=== PATIENT | female | born 1965 | race Caucasian/White ===

== ENCOUNTER → 2017-11-20 | Outpatient (CLI) | payer OTHER | LOC: FIMAGING 16:09 | PROVIDERS: ATTEND Physician Assistant | DX: R05 Cough (principal); J40 Bronchitis, not specified as acute or chronic; R06.89 Other abnormalities of breathing ==

== ENCOUNTER 2018-09-17 10:03 | Inpatient (IN) | payer OTHER ==
--- NOTE | 2018-09-17 10:21 | EDPHY ---
H & P Stated Complaint: Abdominal pain, recently diagnosed with diverticulitis, constipation Time Seen by Provider: 09/17/18 10:21 HPI/ROS: CHIEF COMPLAINT: Abdominal pain, recently diagnosed with diverticulitis, constipation HISTORY OF PRESENT ILLNESS: The patient presents to the ED with abdominal pain increasing over the past several days and constipation which has not been resolved with using laxatives. The patient was diagnosed with diverticulitis approximately 6 days ago [facility] by CT scan. She has been on Cipro and Flagyl since that time. The patient denies any fever but does report increasing abdominal pain, decreased appetite and constipation which has been refractory to [id number] medications including Senokot, milk of magnesia and magnesium citrate. She presents to the ED today secondary to her ongoing pain and constipation. She denies any fever, cough or congestion. She denies additional acute complaints. REVIEW OF SYSTEMS: A comprehensive 10 point review of systems is otherwise negative aside from elements mentioned in the history of present illness. Source: Patient - Personal History Current Tetanus Diphtheria and Acellular Pertussis (TDAP): Yes Tetanus Vaccine Date: May 2012 - Medical/Surgical History Hx Asthma: No Hx Chronic Respiratory Disease: No Hx Diabetes: Yes Hx Cardiac Disease: No Hx Renal Disease: No Hx Cirrhosis: No Hx Alcoholism: No Hx HIV/AIDS: No Hx Splenectomy or Spleen Trauma: No Other PMH: L SUNDEEP, Diffuse Idiopathic Skeletal Hyperostosis, DMII, Osteoarthritis , hysterectomy, diverticulosis - Social History Smoking Status: Current every day smoker - Physical Exam Exam: General Appearance: Alert, no distress Eyes: Pupils equal and round no pallor or injection ENT, Mouth: Mucous membranes moist Respiratory: There are no retractions, lungs are clear to auscultation Cardiovascular: Regular rate and rhythm Gastrointestinal: Diffuse generalized tenderness to palpation, no peritoneal signs, hypoactive bowel sounds Neurological: 5/5 strength all 4 extremities Skin: Warm and dry, no rashes Musculoskeletal: Neck is supple nontender Extremities: symmetrical, full range of motion Constitutional: Initial Vital Signs Temperature (C) 37.2 C 09/17/18 10:12 Heart Rate 105 H 09/17/18 10:12 Respiratory Rate 16 09/17/18 10:12 Blood Pressure 138/90 H 09/17/18 10:12 O2 Sat (%) 95 09/17/18 10:12 O2 Delivery Mode Room Air Allergies/Adverse Reactions: Bran [From Oat Bran] Allergy (Severe, Verified 06/21/16 19:48) itchy and difficulty breathing bupropion HCl [From Wellbutrin] Allergy (Severe, Verified 06/21/16 19:48) Swelling/neck,face,throat dietary supplement [From Oat Bran] Allergy (Severe, Verified 06/21/16 19:48) itchy, difficulty breathing ofloxacin [From Floxin] Allergy (Severe, Verified 06/21/16 19:48) Hives ceftaroline fosamil acetate [From Teflaro] Allergy (Verified 06/21/16 19:48) gabapentin Allergy (Verified 06/21/16 19:48) hydrocodone Allergy (Verified 06/21/16 19:48) procaine HCl [From Novocain] Allergy (Verified 06/21/16 19:48) Swelling/neck,face,throat vancomycin Allergy (Verified 06/21/16 19:48) Home Medications: Medication Instructions Recorded Cholecalciferol Vit D3 [Vitamin D3 5,000 units PO DAILY 05/21/16 (*)] Citalopram Hydrobromide 80 mg PO HS 05/21/16 [Citalopram HBr] Cyclobenzaprine [Flexeril 10 MG 10 mg PO TID@,,22 05/21/16 (*)] Omeprazole [Prilosec 20 mg] 20 mg PO DAILY 05/21/16 oxyCODONE CR [Oxycontin] 30 mg PO TID@,14,22 06/21/16 oxyCODONE HCL/ACETAMINOPHEN 1 - 2 each PO Q3-4PRN PRN 06/21/16 [Percocet 10-325 mg Tablet] Sennosides/Docusate Sodium 1 - 2 tab PO BID PRN #30 tab 06/24/16 [Senokot-S] Cipro 09/17/18 Diclofenac Epolamine 09/17/18 Flagyl 09/17/18 Oxycontin 09/17/18 Prevacid 09/17/18 Medical Decision Making - Diagnostics Imaging Results: Imaging Impressions Abdomen X-Ray 09/17/18 10:29 Impression: 1. No localizing features within the abdomen. 2. Stable persistent elevation right hemidiaphragm. 3. Mild constipation. CT abdomen pelvis with IV contrast: Images reviewed by myself and discussed with radiologist. Sigmoid diverticulitis is present without evidence of an obvious perforation or abscess. Some artifact from prior hip replacement. ED Course/Re-evaluation: I reviewed the results of the patient's CT scan in the [facility] database performed on September 12: IMPRESSION: 1. Mild distal colonic diverticulosis with mild short segment thickening of the sigmoid colon. Image quality is degraded within the pelvis from left SUNDEEP artifact. This could represent focal colitis or mild diverticulitis. The patient had an IV established. The patient received normal saline in the emergency department. The patient now has a [place] [address]. She reports increasing pain since starting oral antibiotic therapy for mild diverticulitis. Plain film of the abdomen demonstrates mild constipation without evidence of perforation or abscess. I re-evaluated the patient at 12:00 p.m.. Given her increasing tenderness and leukocytosis am concerned about the possibility of a perforation or abscess. We will repeat a CT scan of the abdomen and pelvis to assess for the possibility of complications of her diverticular disease. 2:00 p.m.: Patient CT scan demonstrates diverticulitis without perforation or abscess. The patient is still quite uncomfortable and is requesting in-patient hospitalization. Consultation is made with the hospitalist service. She will be admitted for further care for diverticulitis. I have ordered IV Levaquin and Flagyl in the emergency department. Differential Diagnosis: Differential diagnosis considered includes diverticulitis, perforation, abscess , appendicitis, mesenteric adenitis, constipation, obstipation, obstruction - Data Points Laboratory Results: Laboratory Results 09/17/18 10:40 09/17/18 10:40 09/17/18 09/17/18 10:40 10:40 WBC 14.47 10^3/uL H 10^3/uL (3.80-9.50) RBC 4.80 10^6/uL 10^6/uL (4.18-5.33) Hgb 14.9 g/dL g/dL (12.6-16.3) Hct 43.9 % % (38.0-47.0) MCV 91.5 fL fL (81.5-99.8) MCH 31.0 pg pg (27.9-34.1) MCHC 33.9 g/dL g/dL (32.4-36.7) RDW 12.5 % % (11.5-15.2) Plt Count 373 10^3/uL 10^3/uL (150-400) MPV 9.4 fL fL (8.7-11.7) Neut % (Auto) 83.0 % H % (39.3-74.2) Lymph % (Auto) 9.7 % L % (15.0-45.0) [place] % (Auto) 6.1 % % (4.5-13.0) Eos % (Auto) 0.6 % % (0.6-7.6) Baso % (Auto) 0.3 % % (0.3-1.7) Nucleat RBC Rel Count 0.0 % % (0.0-0.2) Absolute Neuts (auto) 12.01 10^3/uL H 10^3/uL (1.70-6.50) Absolute Lymphs (auto) 1.40 10^3/uL 10^3/uL (1.00-3.00) Absolute Monos (auto) 0.88 10^3/uL H 10^3/uL (0.30-0.80) Absolute Eos (auto) 0.08 10^3/uL 10^3/uL (0.03-0.40) Absolute Basos (auto) 0.05 10^3/uL 10^3/uL (0.02-0.10) Absolute Nucleated RBC 0.00 10^3/uL 10^3/uL (0-0.01) Immature Gran % 0.3 % % (0.0-1.1) Immature Gran # 0.05 10^3/uL 10^3/uL (0.00-0.10) Sodium 137 mEq/L mEq/L (135-145) Potassium 4.9 mEq/L mEq/L (3.3-5.0) Chloride 101 mEq/L mEq/L (97-110) Carbon Dioxide 25 mEq/l mEq/l (22-31) Anion Gap 11 mEq/L mEq/L (6-14) BUN 11 mg/dL mg/dL (7-23) Creatinine 0.9 mg/dL mg/dL (0.6-1.0) Estimated GFR > 60 Glucose 311 mg/dL H mg/dL (70-100) Calcium 9.5 mg/dL mg/dL (8.5-10.4) Medications Given: Discontinued Medications Sodium Chloride (Ns) 1,000 mls @ 0 mls/hr IV EDNOW ONE; Wide Open PRN Reason: Protocol Stop: 09/17/18 11:08 Last Admin: 09/17/18 11:13 Dose: 1,000 mls Departure - Departure Disposition: [facility] Inpatient Acute Clinical Impression: Diverticulitis Condition: Good Referrals: Marguerite Conley MD [Primary Care Provider] - As per Instructions
[2018-09-17 10:45] LABS: PLATELET COUNT 373 10^3/uL (150-400)
[2018-09-17] MEDS ORDERED: NS 1,000 ML IV ONE (11:07)
[2018-09-17] MEDS ORDERED: IOPAMIDOL (ISOVUE-300) 100 ML BTL ONE (12:07)
[2018-09-17] MEDS ORDERED: ERTAPENEM 1 GM in NS 100 ML IV ONE (14:13)
[2018-09-17] MEDS ORDERED: ONDANSETRON DISINTEGRATING 4 MG TAB PO PRN (14:16)
[2018-09-17] MEDS ORDERED: ONDANSETRON 4 MG/2 ML VIAL IVP PRN (14:16)
[2018-09-17] MEDS ORDERED: ACETAMINOPHEN 325 MG TAB PO PRN (14:21)
[2018-09-17] MEDS ORDERED: NS W/ 20 KCl/L 1,000 ML IV SCH (14:30)
[2018-09-17] MEDS ORDERED: D50W 25 GM/50 ML SYR IVP PRN (14:48)
--- NOTE | 2018-09-17 15:23 | GHP ---
DATE OF ADMISSION: 09/17/2018 CHIEF COMPLAINT: Diverticulitis. HISTORY OF PRESENT ILLNESS: This is a 53-year-old female who presents with diverticulitis. Notably, she was seen in the ED in [place] 5 days ago. Diagnosed by CT scan with diverticulitis at that point. She was started on Cipro, as well as Flagyl. Since then, she has not had a bowel movement, has had some ongoing abdominal pain which has worsened. She has been taking laxatives, as well as stool softeners for her constipation. She believes she had some night sweats last night, but no true fevers. She has some nausea, but no vomiting. She has some sharp pain in her suprapubic area when she urinates, as well but no real dysuria. Her last episode of diverticulitis was about 2 years ago. At that time, prophylactic colectomy was considered; however, she declined. She discussed this with Dr. Shea. She has had diverticulitis 2 or 3 times before that, which had been treated as an outpatient. Her last colonoscopy was in 2013. PAST MEDICAL/SURGICAL HISTORY: 1. Diabetes mellitus. 2. Chronic pain on continuous narcotics. 3. 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 4. Episode of neutropenia. 5. Osteoarthritis. 6. DISH. 7. Morbid obesity. 8. Chronic back pain. MEDICATIONS: Please see medication reconciliation. ALLERGIES: bupropion, ofloxacin, ceftaroline, gabapentin, hydrocodone, procaine , and vancomycin. SOCIAL HISTORY: She does not drink. She does smoke and requests a nicotine patch. FAMILY HISTORY: No colon cancer or other colon pathology. REVIEW OF SYSTEMS: A 10-point review of systems is conducted and is negative, except per HPI. PHYSICAL EXAM: VITAL SIGNS: Blood pressure 135/87, heart rate 87, respiration rate 16, saturating 95% on room air, temperature is 37. GENERAL: The patient is a pleasant female who is resting comfortably in no acute distress. HEENT: Normocephalic, atraumatic. CARDIOVASCULAR: Regular rate and rhythm. No murmurs, rubs, or gallops. PULMONARY: Lungs clear to auscultation bilaterally. ABDOMEN: Shows her to have normal bowel sounds. She has an obese abdomen. She has a midline vertical surgical scar to her umbilicus. She is mildly tender to palpation mostly in the right middle quadrant with no significant left lower quadrant or suprapubic tenderness. She has a non- peritoneal exam. SKIN: No rash. : No Parsons. NEUROLOGIC: Shows her to be alert and oriented x3. She is moving all extremities. PSYCHIATRIC: Exam shows a normal mood and affect. LABORATORY: White count is 14.4. Basic metabolic panel is normal. Glucose is 311. DATA: 1. I discussed with Dr. Gant. Will admit to Med/Surg. 2. I personally viewed and interpreted her abdominal CT scan. This shows some mild sigmoid diverticulitis. No perforation, free air, or abscess. IMPRESSION/PLAN: 1. Diverticulitis, uncomplicated: She has had significant antibiotic exposure from her infected hip. When she was here 2 years ago, Infectious Disease recommended Invanz for initial treatment, will start this now. She has failed outpatient oral Cipro/Flagyl. She has sharp suprapubic pain, but no other evidence of colovesicular fistula on imaging. Will treat her conservatively for now, make her n.p.o., give her intravenous fluids and intravenous antibiotics. She saw Dr. Shea previously for discussion of a prophylactic colectomy. She certainly does not need emergent or urgent surgery at this point. 2. Diabetes mellitus with hyperglycemia: I do not see that she is on any medications for this. Will follow her glucoses and start her on sliding scale insulin for now. This may need to be further addressed. 3. History of left total hip arthroplasty with infection, as well as multiple surgeries: She has been off antibiotics for almost 2 years, and her last surgery was about 2 years ago. 4. Chronic pain on continuous narcotics: Will continue her home oral narcotics and give her intravenous options as well. 5. Suspected ileus: Her constipation should resolve when the inflammation from her diverticulitis resolves. I will not continue laxatives at this point. 6. Morbid obesity. 7. Venous thromboembolism risk: She is moderate to high risk. I will start her on Lovenox. /[id number]/MODL MTDD
[2018-09-17] MEDS: CYCLOBENZAPRINE 10 MG TAB PO SCH ×2 (15:39→21:05)
[2018-09-17] MEDS: NICOTINE 21 MG/24 HR PATCH TD SCH (15:40)
[2018-09-17] MEDS: NS 1,000 ML IV SCH (15:46)
--- NOTE | 2018-09-17 16:40 | PDMN ---
Medical Necessity Medical necessity: Pt meets inpt criteria per MD order and MCG M-150, Diverticulitis, Acute. 53 y/o recently diagnosed w/acute diverticulitis and treated as outpt presents today w/nausea and abdominal pain as well as pain in suprpubic area, and no BM in 5 days, admitted w/acute diverticulitis (w/failed outpt treatment w/oral Cipro/Flagyl), suspected ileus, and hyperglycemia. NPO, IVF, IV ABX's, SS insulin, IV Dilaudid for pain, anticipate>2MN for management of above.
[2018-09-17] MEDS: HYDROmorphONE/DILAUDID 1 MG/ML INJ IVP PRN ×2 (17:32→21:36)
[2018-09-17] MEDS ORDERED: oxyCODONE IR 5 MG TAB PO PRN (17:42)
[2018-09-17] MEDS: OXYCODONE/APAP 5/325 TAB PO PRN (18:51)
[2018-09-17] MEDS: oxyCODONE IR 5 MG TAB PO PRN (18:52)
[2018-09-17] MEDS: INSULIN LISPRO 100 UNIT/ML SC SCH (19:20)
--- NOTE | 2018-09-17 19:29 | ASMTLACE ---
JOHN Acuity / Level of Answers: Yes Care: Did the patient have an inpatient admission? Comorbidities - select Answers: Diabetes (uncontrolled or all that apply controlled) Opioid dependence / Chronic pain Other Notes: Diverticulitis # of Emergency department Answers: 1-2 visits in the last 6 months Social determinants Answers: History of trauma (PTSD, child abuse, domestic violence, etc.) Mental health diagnosis (anxiety, depression, pers onality disorders, etc.) Score: 16 Date Signed: 09/17/2018 07:28 PM Electronically Signed By:Peg Nick
[2018-09-17] MEDS: DICLOFENAC SODIUM 50 MG TAB PO SCH (21:05)
[2018-09-17] MEDS: MELATONIN 3 MG TAB PO SCH (21:05)
[2018-09-17] MEDS: CITALOPRAM 20 MG TAB PO SCH (21:37)
[2018-09-18] MEDS: oxyCODONE IR 5 MG TAB PO PRN ×3 (00:11→20:19)
[2018-09-18] MEDS: OXYCODONE/APAP 5/325 TAB PO PRN ×4 (00:11→20:19)
[2018-09-18] MEDS: HYDROmorphONE/DILAUDID 1 MG/ML INJ IVP PRN ×3 (03:25→17:32)
[2018-09-18 05:32] LABS: PLATELET COUNT 328 10^3/uL (150-400)
[2018-09-18] MEDS: CYCLOBENZAPRINE 10 MG TAB PO SCH ×3 (08:16→20:21)
[2018-09-18] MEDS: ERTAPENEM 1 GM in NS 100 ML IV SCH (08:16)
[2018-09-18] MEDS: DICLOFENAC SODIUM 50 MG TAB PO SCH ×2 (08:16→20:21)
[2018-09-18] MEDS: NICOTINE 21 MG/24 HR PATCH TD SCH (08:17)
[2018-09-18] MEDS: INSULIN LISPRO 100 UNIT/ML SC SCH ×3 (08:18→18:28)
[2018-09-18] MEDS ORDERED: LANSOPRAZOLE SUSP 3 MG/ML UDSYR (Peds) PO SCH (09:00)
[2018-09-18] MEDS ORDERED: ENOXAPARIN 40 MG/0.4 ML SYR SC SCH (09:00)
[2018-09-18] MEDS: NS 1,000 ML IV SCH ×2 (11:31→20:19)
--- NOTE | 2018-09-18 14:08 | ASMTCMCOM ---
CM Note CM Note Notes: Pt is a 53 y/o female who presented to the ED with increasing abdominal pain over the last several days. She was diagnosed 6 days ago, with diverticulitis, at [facility]. She has been diagnosed with diverticulitis 3-4x in the past; her last episode was 2 y/a. Pt has a medical hx which includes morbid obesity, diabetes and chronic pain/continual narcotics. Pt lives independently and is employed by [employer]. No CM needs have been identified at this time. CM will follow for changes. D/C Plan: Independent. Date Signed: 09/18/2018 02:07 PM Electronically Signed By:Keke Ramsey
--- NOTE | 2018-09-18 14:43 | HOSPPROG ---
Hospitalist Progress Note Assessment/Plan: 53y female with c/oo abd pain. First encounter, chart reviewed. #Uncomplicated diverticulitis -cont IV invanz -will transition to po when able -start clear liquids #Abd pain -improvement -still some -feeling better #DM -follow -SSI #Hx hip infection -stable -no signs of infection #Chronic pain/narcotics -cont #Morbid obesity -baseline #Dispo -unclear, cont IV abx -clear liquid Subjective: Still having some abdominal pain. Better than yesterday. Located in the right lower quadrant today. Objective: Vital Signs Temp Pulse Resp BP Pulse Ox 36.7 C 84 12 156/93 H 93 09/18/18 07:31 09/18/18 07:31 09/18/18 07:31 09/18/18 07:31 09/18/18 07:31 Laboratory Results 09/18/18 04:24 09/18/18 04:24 09/17/18 09/18/18 09/19/18 05:59 05:59 05:59 Intake Total 500 Balance 500 - Physical Exam Constitutional: appears nourished, obese, uncomfortable Eyes: PERRL, anicteric sclera, EOMI Ears, Nose, Mouth, Throat: moist mucous membranes, hearing normal, ears appear normal Cardiovascular: regular rate and rhythym, No JVD, No edema Respiratory: no respiratory distress, no rales or rhonchi, reduced air movement Gastrointestinal: normoactive bowel sounds, tenderness, No ascites, No distension Skin: warm, normal color, No mottled Musculoskeletal: normal joint ROM, no joint effusions, generalized weakness Neurologic: AAOx3 Psychiatric: interacting appropriately, not anxious, not encephalopathic, thought process linear ICD10 Worksheet Patient Problems: Problems Problem Status Onset Prosthetic hip infection Acute Diverticulitis Acute Narcotic dependence Acute Constipation Acute Diverticulitis Acute
[2018-09-18] MEDS: ENOXAPARIN 40 MG/0.4 ML SYR SC SCH ×2 (20:20→20:23)
[2018-09-18] MEDS: CITALOPRAM 20 MG TAB PO SCH (20:20)
[2018-09-18] MEDS: MELATONIN 3 MG TAB PO SCH (20:21)
[2018-09-19] MEDS: HYDROmorphONE/DILAUDID 1 MG/ML INJ IVP PRN ×2 (04:04→11:55)
[2018-09-19] MEDS: NS 1,000 ML IV SCH ×3 (04:06→22:06)
[2018-09-19] MEDS: NICOTINE 21 MG/24 HR PATCH TD SCH (08:41)
[2018-09-19] MEDS: DICLOFENAC SODIUM 50 MG TAB PO SCH ×2 (08:42→21:14)
[2018-09-19] MEDS: OXYCODONE/APAP 5/325 TAB PO PRN ×4 (08:42→22:04)
[2018-09-19] MEDS: ERTAPENEM 1 GM in NS 100 ML IV SCH (08:42)
[2018-09-19] MEDS: oxyCODONE IR 5 MG TAB PO PRN ×4 (08:43→22:04)
[2018-09-19] MEDS: CYCLOBENZAPRINE 10 MG TAB PO SCH ×3 (08:43→21:14)
[2018-09-19] MEDS: ENOXAPARIN 40 MG/0.4 ML SYR SC SCH ×2 (09:20→22:35)
[2018-09-19] MEDS: INSULIN LISPRO 100 UNIT/ML SC SCH ×3 (09:26→18:09)
[2018-09-19] MEDS: PANTOPRAZOLE SODIUM 40 MG TAB PO SCH (09:27)
--- NOTE | 2018-09-19 13:09 | HOSPPROG ---
Hospitalist Progress Note Assessment/Plan: 53y female with c/o abd pain. #Uncomplicated diverticulitis -cont IV invanz -not tolerating clear liquids -NPO -KUB no obstruction #Abd pain -slight increase today -still some #DM -follow -SSI #Hx hip infection -stable -no signs of infection #Chronic pain/narcotics -cont #Morbid obesity -baseline #Dispo -unclear, cont IV abx -NPO Subjective: Having increased pain this morning. Slept ok last night. No other issues. Objective: Vital Signs Temp Pulse Resp BP Pulse Ox 37.0 C 81 18 164/92 H 95 09/19/18 07:15 09/19/18 07:15 09/19/18 07:15 09/19/18 07:15 09/19/18 07:15 Laboratory Results 09/18/18 04:24 09/18/18 04:24 09/18/18 09/19/18 09/20/18 05:59 05:59 05:59 Intake Total 500 1300 Balance 500 1300 - Physical Exam Constitutional: appears nourished, obese, uncomfortable Eyes: PERRL, anicteric sclera, EOMI Ears, Nose, Mouth, Throat: moist mucous membranes, hearing normal, ears appear normal Cardiovascular: No JVD, No tachycardia, No edema Respiratory: no respiratory distress, no rales or rhonchi, reduced air movement Gastrointestinal: normoactive bowel sounds, tenderness, No ascites Skin: warm, normal color, No mottled Musculoskeletal: normal joint ROM, no joint effusions, generalized weakness Neurologic: AAOx3 Psychiatric: interacting appropriately, not anxious, not encephalopathic, thought process linear ICD10 Worksheet Patient Problems: Problems Problem Status Onset Prosthetic hip infection Acute Diverticulitis Acute Narcotic dependence Acute Constipation Acute Diverticulitis Acute
--- NOTE | 2018-09-19 16:22 | ASMTCMCOM ---
CM Note CM Note Notes: Pt continues to require treatment. No CM needs identified. CM will follow for changes. D/C Plan: Independent Date Signed: 09/19/2018 04:22 PM Electronically Signed By:Keke Ramsey
[2018-09-19] MEDS: CITALOPRAM 20 MG TAB PO SCH (21:14)
[2018-09-19] MEDS: MELATONIN 3 MG TAB PO SCH (21:14)
[2018-09-20] MEDS: NS 1,000 ML IV SCH (08:16)
[2018-09-20] MEDS: INSULIN LISPRO 100 UNIT/ML SC SCH ×3 (09:15→18:26)
[2018-09-20] MEDS: ERTAPENEM 1 GM in NS 100 ML IV SCH (09:27)
[2018-09-20] MEDS: ENOXAPARIN 40 MG/0.4 ML SYR SC SCH ×2 (09:28→21:09)
[2018-09-20] MEDS: PANTOPRAZOLE SODIUM 40 MG TAB PO SCH (09:28)
[2018-09-20] MEDS: NICOTINE 21 MG/24 HR PATCH TD SCH (09:28)
[2018-09-20] MEDS: oxyCODONE IR 5 MG TAB PO PRN ×3 (09:29→21:07)
[2018-09-20] MEDS: DICLOFENAC SODIUM 50 MG TAB PO SCH ×2 (09:29→21:06)
[2018-09-20] MEDS: OXYCODONE/APAP 5/325 TAB PO PRN ×3 (09:29→21:07)
[2018-09-20] MEDS: CYCLOBENZAPRINE 10 MG TAB PO SCH ×3 (09:29→21:06)
[2018-09-20] MEDS: CHOLECALCIFEROL VIT D3 2,000 UNITS TAB/CAP PO SCH ×2 (15:04→21:06)
--- NOTE | 2018-09-20 15:10 | HOSPPROG ---
Hospitalist Progress Note Assessment/Plan: 53y female with c/o abd pain found to be 2/2 recurrent sigmoid diverticulitis # recurrent uncomplicated sigmoid diverticulitis: sounds to be her 7th episode, has been considered for colectomy in the past. sxs currently improving and now tolerating clear liquids. Continued on invanz but likely dc on levo/flagyl as this has worked in the past. # abd pain: 2/2 above, continues but improving # ileus: improved and now with nearly normal bowel sounds, abd xray from yesterday personally reviewed and w/o e/o obstruction # DM: continue ssi # recurrent hip infection # chronic pain/continuous narcotic use and dependency: likely making pain control slightly more challenging but currently well controlled # morbid obesity: BMI of 42, encourage lifestyle changes # IP status, will likely be ready to dc in coming 1-2 days if able to tolerate diet Patient new to my care. Old records reviewed and summarized as above. Subjective: no significant overnight events, patient currently feeling a bit better, eager to try clear liquids Objective: Vital Signs Temp Pulse Resp BP Pulse Ox 36.8 C 81 12 173/108 H 94 09/20/18 07:28 09/20/18 07:28 09/20/18 07:28 09/20/18 07:28 09/20/18 07:28 Laboratory Results 09/18/18 04:24 09/18/18 04:24 09/19/18 09/20/18 09/21/18 05:59 05:59 05:59 Intake Total 1300 1300 Balance 1300 1300 awake alert anicteric op clear rrr no mrg cta b soft normal bs mild ttp no cce warm dry well perfused oriented appropriate ICD10 Worksheet Patient Problems: Problems Problem Status Onset Prosthetic hip infection Acute Diverticulitis Acute Narcotic dependence Acute Constipation Acute Diverticulitis Acute
[2018-09-20] MEDS: CITALOPRAM 20 MG TAB PO SCH (21:06)
[2018-09-20] MEDS: MELATONIN 3 MG TAB PO SCH (21:07)
[2018-09-21] MEDS ORDERED: metroNIDAZOLE 500 MG TAB PO SCH (09:00)
[2018-09-21] MEDS ORDERED: amLODIPine BESYLATE 5 MG TAB PO SCH (09:00)
--- NOTE | 2018-09-21 09:02 | PDDCSUM ---
Discharge Summary Discharge Summary: Dates of service 09/17-09/21/18 Consultations: none Procedures performed: abd CT Hospital course by problem: # acute recurrent diverticulitis: uncomplicated, has improved considerably with significantly decreased pain and now able to tolerate regular diet. Has been seen by Dr. Elias in the past for consideration of surgery should she have continued recurrences. Discussed this with her, it has been > 2 years since her last bout and she would like to continue to avoid surgery if possible. Will dc home on levo/flagyl to complete 10 day course. # uncontrolled htn: patient notes that she has been on bp meds in the past, but that this led to increased depression and a suicide attempt and she has not been treating her BP since then. Reviewed options of bp meds and agreed that perhaps safest medication and most appropriate given her DM would be lisinopril. Reviewed possible side effects and plan to start very low and have her f/u with her PCP in coming week for continued adjustment. # uncontrolled DM: with BS quite high intermittently while here and patient not on any DM meds as an OP. Reviewed consideration of starting metformin--she notes she has been on that and glyburide in the past and was not able to tolerate. Discussed with her going home on insulin but her concerns are that she has attempted to kill herself with insulin in the past and does not feel safe on that medication. She notes she is working with an open hearth furnace operator helper and a neuro/psychiatrist on a plan for her diabetes but she does not feel comfortable beginning any medication for that at this time. She believes her sugars are currently higher than usual due to the diverticulitis which is undoubtedly playing a role. # depression, severe, with hx of suicide attempts: patient notes that her depression has made control of her other medical issues a problem as above, she is followed by a [employer] psychiatrist and feels that her current medications are working but it is still something she deals with. Reviewed options going forward and importance that she control her depression so that she can control her other medical issues and she agrees. Will continue to work on this with her psychiatrist and her pcp DC home Items for f/u: --ongoing bp management, f/u how she is doing on low dose lisinopril and consider uptitration if needed --ongoing BS management and getting patient started on DM meds --ongoing depression management, consider ECT if meds remain only minimally effective f/u with pcp, psychiatrist, open hearth furnace operator helper > 35 min spent in discharge, more than half in counseling patient regarding new medications and other medical issues and concerns
[2018-09-21] MEDS: INSULIN LISPRO 100 UNIT/ML SC SCH ×2 (09:04→12:08)
[2018-09-21] MEDS: NICOTINE 21 MG/24 HR PATCH TD SCH (09:05)
[2018-09-21] MEDS: DICLOFENAC SODIUM 50 MG TAB PO SCH (09:05)
[2018-09-21] MEDS: oxyCODONE IR 5 MG TAB PO PRN (09:06)
[2018-09-21] MEDS: OXYCODONE/APAP 5/325 TAB PO PRN (09:06)
[2018-09-21] MEDS: PANTOPRAZOLE SODIUM 40 MG TAB PO SCH (09:06)
[2018-09-21] MEDS: CHOLECALCIFEROL VIT D3 2,000 UNITS TAB/CAP PO SCH (09:06)
[2018-09-21] MEDS: CYCLOBENZAPRINE 10 MG TAB PO SCH (09:06)
[2018-09-21] MEDS: ENOXAPARIN 40 MG/0.4 ML SYR SC SCH (09:11)
[2018-09-21] MEDS ORDERED: LISINOPRIL 5 MG TAB PO SCH (09:30)
--- NOTE | 2018-09-21 09:33 | ASDISCHSUM ---
Discharge Information Plan Status:Home with No Needs Medically Cleared to Leave:09/21/2018 Discharge Date:09/21/2018 CM D/C Disposition: ADT D/C Disposition:Home, Routine, Self-Care Projected Discharge Date:09/21/2018 Transportation at D/C: Discharge Delay Reason: Follow-Up Date:09/21/2018 Discharge Slot: Final Diagnosis: Placement Information Patient Contact Information Contact Name:ANASTACIO Relationship:Neo Address: Work Phone: City: [facility] Phone: [email or web address] Code: Email: Financial Information Financial Class:HMO and PPO Plans Primary Plan Desc:Lottay RACQUEL Primary Plan Number:[id number] Secondary Plan Desc:[employer] Secondary Plan Number:[id number] Assessment Information LACE LACE Acuity / Level of Answers: Yes Care: Did the patient have an inpatient admission? Comorbidities - select Answers: Diabetes (uncontrolled or all that apply controlled) Opioid dependence / Chronic pain Other Notes: Diverticulitis # of Emergency department Answers: 1-2 visits in the last 6 months Social determinants Answers: History of trauma (PTSD, child abuse, domestic violence, etc.) Mental health diagnosis (anxiety, depression, pers onality disorders, etc.) Score: 16 Date Signed: 09/17/2018 07:28 PM Electronically Signed By:Peg Nick [facility] CM Progress Note CM Note CM Note Notes: Pt is a 53 y/o female who presented to the ED with increasing abdominal pain over the last several days. She was diagnosed 6 days ago, with diverticulitis, at [facility]. She has been diagnosed with diverticulitis 3-4x in the past; her last episode was 2 y/a. Pt has a medical hx which includes morbid obesity, diabetes and chronic pain/continual narcotics. Pt lives independently and is employed by [employer]. No CM needs have been identified at this time. CM will follow for changes. D/C Plan: Independent. Date Signed: 09/18/2018 02:07 PM Electronically Signed By:Keke Ramsey [facility] CM Progress Note CM Note CM Note Notes: Pt continues to require treatment. No CM needs identified. CM will follow for changes. D/C Plan: Independent Date Signed: 09/19/2018 04:22 PM Electronically Signed By:Keke Ramsey Intervention Information
--- NOTE | 2018-09-21 09:35 | ASMTCMCOM ---
CM Note CM Note Notes: Medically cleared for discahrge. No needs at present. CM avaialble should needs arise. Plan: DC to home no needs, Date Signed: 09/21/2018 09:34 AM Electronically Signed By:Kristen Casas RN
[2018-09-21 11:50] VITALS: BP 162/107
== END 2018-09-21 13:00 | disposition home or self-care (01) | DRG 392 ==
LOC: F3E 14:48
PROVIDERS: ADMIT Student in an Organized Health Care Education/Training Program; ATTEND Internal Medicine
DX: K57.32 Diverticulitis of large intestine without perforation or abscess without bleeding (principal); K59.09 Other constipation; I10 Essential (primary) hypertension; E11.65 Type 2 diabetes mellitus with hyperglycemia; F33.9 Major depressive disorder, recurrent, unspecified; E66.01 Morbid (severe) obesity due to excess calories; Z68.41 Body mass index [BMI] 40.0-44.9, adult; G89.29 Other chronic pain; Z79.891 Long term (current) use of opiate analgesic; F17.210 Nicotine dependence, cigarettes, uncomplicated; Z96.642 Presence of left artificial hip joint
CPT/HCPCS: 96365; J1170; J1335; J1650; J1815; J1956; Q9967